=== PATIENT | female | born 2000 | race Caucasian/White ===

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

== ENCOUNTER 2021-05-15 13:12 | Outpatient (CLI) | payer MEDICAID ==
[~2021-05-15] VITALS: Ht 175.3 cm; Wt 79.0 kg
[~2021-05-15 13:12] MED LIST changes: +IBUP-1222 PO
== END 2021-05-15 14:15 | disposition home or self-care (01) ==
LOC: LDOP 13:12
PROVIDERS: ATTEND Obstetrics & Gynecology
DX: O42.913 Preterm premature rupture of membranes, unspecified as to length of time between rupture and onset of labor, third trimester (principal); O36.8130 Decreased fetal movements, third trimester, not applicable or unspecified; Z3A.35 35 weeks gestation of pregnancy
CPT/HCPCS: 59025; 84112